=== PATIENT | male | born 1975 ===

== ENCOUNTER 2017-03-24 11:01 | Emergency (ER) | payer SELFPAY ==
[2017-03-24 11:21] VITALS: BMI 37.4
[2017-03-24 11:26] VITALS: BP 115/76; PULSE 88; RESP 18; TEMP 98.4; O2SAT 95
--- NOTE | 2017-03-24 11:45 | ED PDOC ---
Arrival/HPI - General Historian: Patient <Delonte Whitley A - Last Filed: 03/24/17 11:58> <Padmini Gonzales - Last Filed: 03/27/17 15:37> - General Chief Complaint: Dental Pain Time Seen by Provider: 03/24/17 11:15 - History of Present Illness Narrative History of Present Illness (Text): 03/24/17 11:41 41yo male with PMHx of Diabetes who present with 2days history of left lower toothache x 2days. States he took Aleve yesterday without relieve. Denies fever , chills, trauma, any other complaint. (Delonte Whitley A) Past Medical History - Provider Review Nursing Documentation Reviewed: Yes - Infectious Disease Hx of Infectious Diseases: None - Endocrine/Metabolic Hx Diabetes Mellitus Type 2: Yes - Psychiatric Hx Substance Use: No - Anesthesia Hx Anesthesia: No <Delonte Whitley A - Last Filed: 03/24/17 11:58> Family/Social History - Physician Review Nursing Documentation Reviewed: Yes Family/Social History: Unknown Family HX Smoking Status: Never Smoked Hx Alcohol Use: Yes Frequency of alcohol use: Socially Hx Substance Use: No <Delonte Whitley A - Last Filed: 03/24/17 11:58> Allergies/Home Meds <Delonte Whitley A - Last Filed: 03/24/17 11:58> <Padmini Gonzales - Last Filed: 03/27/17 15:37> Allergies/Adverse Reactions: Allergies No Known Allergies Allergy (Verified 03/24/17 11:21) Home Medications: Home Meds Medication Instructions Recorded Confirmed metFORMIN [glucOPHAGE] 1 tab PO DAILY 03/24/17 03/24/17 Review of Systems - Physician Review All systems were reviewed & negative as marked: Yes - Review of Systems Constitutional: Normal Eyes: Normal ENT: Other (Toothache) Respiratory: Normal Cardiovascular: Normal Gastrointestinal: Normal Genitourinary Male: Normal Musculoskeletal: Normal Skin: Normal Neurological: Normal Endocrine: Normal Hemo/Lymphatic: Normal Psychiatric: Normal <Delonte Whitley A - Last Filed: 03/24/17 11:58> Physical Exam Vital Signs Reviewed: Yes Temperature: Afebrile Blood Pressure: Normal Pulse: Regular Respiratory Rate: Normal Appearance: Positive for: Well-Appearing, Non-Toxic, Comfortable Pain Distress: None Mental Status: Positive for: Alert and Oriented X 3 - Systems Exam Head: Present: Atraumatic, Normocephalic Pupils: Present: PERRL Extroacular Muscles: Present: EOMI Conjunctiva: Present: Normal Mouth: Present: Moist Mucous Membranes, Normal Teeth (No gingival swelling. No loose tooth noted) Neck: Present: Normal Range of Motion Respiratory/Chest: Present: Clear to Auscultation, Good Air Exchange. No: Respiratory Distress, Accessory Muscle Use Cardiovascular: Present: Regular Rate and Rhythm, Normal S1, S2. No: Murmurs Abdomen: Present: Normal Bowel Sounds. No: Tenderness, Distention, Peritoneal Signs Back: Present: Normal Inspection Upper Extremity: Present: Normal Inspection. No: Cyanosis, Edema Lower Extremity: Present: Normal Inspection. No: Edema Neurological: Present: GCS=15, CN II-XII Intact, Speech Normal Skin: Present: Warm, Dry, Normal Color. No: Rashes Psychiatric: Present: Alert, Oriented x 3, Normal Insight, Normal Concentration <GutierrezHappiness A - Last Filed: 03/24/17 11:58> Vital Signs Temp Pulse Resp BP Pulse Ox 03/24/17 11:25 98.4 F 88 18 115/76 95 Medical Decision Making <GutierrezHappiness A - Last Filed: 03/24/17 11:58> <Padmini Gonzales - Last Filed: 03/27/17 15:37> ED Course and Treatment: 03/24/17 11:58 Pt in ED for stated history. He was hemodynamically stable in ED. PE was benign. He was advised to f/u with a Dentist for outpt evaluation. Placed on Amoxicillin and Tramadol. (DiruHappiness A) - Medication Orders Current Medication Orders: Discontinued Medications Amoxicillin (Amoxil 500 Mg Cap) 500 mg PO STAT STA PRN Reason: Protocol Stop: 03/24/17 11:41 Last Admin: 03/24/17 11:48 Dose: 500 mg Tramadol HCl (Ultram) 50 mg PO STAT STA Stop: 03/24/17 11:41 Last Admin: 03/24/17 11:47 Dose: 50 mg MAR Pain Assessment Document 03/24/17 11:47 SRE (Rec: 03/24/17 11:48 SRE [id number]) Pain Reassessment Is this a pain reassessment? Yes Sleep Is patient sleeping during reassessment? No Presence of Pain Presence of Pain Yes Pain Scale Used Pain Scale Used Numeric Location Left, Right or Bilateral Left Upper or Lower Lower Pain Location Body Site Face Description Description Constant - PA / [employer] / Resident Statement MD/DO has reviewed & agrees with the documentation as recorded. <Padmini Gonzales - Last Filed: 03/27/17 15:37> Disposition/Present on Arrival - Present on Arrival Any Indicators Present on Arrival: No History of DVT/PE: No History of Uncontrolled Diabetes: No Urinary Catheter: No History of Decub. Ulcer: No History Surgical Site Infection Following: None - Disposition Have Diagnosis and Disposition been Completed?: Yes Disposition Time: 11:45 Patient Plan: Discharge <Delonte Whitley - Last Filed: 03/24/17 11:58> <Padmini Gonzales - Last Filed: 03/27/17 15:37> - Disposition Diagnosis: Dental caries Disposition: HOME/ ROUTINE Condition: STABLE Discharge Instructions (ExitCare): Dental Caries (ED) Additional Instructions: Follow up with a Dentist Return to ED for any new or worsening symptoms Prescriptions: Amoxicillin 500 mg PO TID #21 tab traMADol [Ultram] 50 mg PO TID #10 tab Referrals: [facility] [place] [facility] [place] - Follow up with primary Forms: [employer] (Z[place]ian)
== END 2017-03-24 12:33 | disposition home or self-care (01) ==
LOC: ED 11:01
DX: K02.9 Dental caries, unspecified (principal); E11.9 Type 2 diabetes mellitus without complications